=== PATIENT | male | born 1955 | race Caucasian/White ===

== ENCOUNTER 2016-12-13 07:15 | Day surgery (SDC) | payer BC ==
[2016-12-13] MEDS ORDERED: Lactated Ringers 1,000 ML IV ONE (08:19)
[2016-12-13] MEDS ORDERED: Lactated Ringers 1,000 ML IV SCH (08:30)
[2016-12-13 11:46] VITALS: O2SAT 98
[2016-12-13 12:01] VITALS: BP 148/88; PULSE 60
[2016-12-13] MEDS ORDERED: DIPRIVAN 200 MG/20 ML IV ONE (13:30)
[2016-12-13] MEDS ORDERED: Ketamine HCl 50 MG/ML IV ONE (13:30)
--- NOTE | 2016-12-14 08:19 | OP ---
SURGERY DATE: 12/13/16 SURGERY TIME: 904 PREOPERATIVE DIAGNOSIS: 1. THICKENED STOMACH ON CT SCAN. NEEDS FURTHER EVALUATION WITH ENDOSCOPY. POSTOPERATIVE DIAGNOSIS: 1. VERY SMALL HIATAL HERNIA. 2. GASTROESOPHAGEAL REFLUX DISEASE. 3. GASTRITIS. PROCEDURE: 1. EGD with biopsies. SURGEON: Dr. Abril Fuentes. ANESTHESIA: MAC. SPECIMENS: 1. Antral biopsy to rule out Helicobacter pylori. 2. Thick pyloric tissue, rule out malignancy. ESTIMATED BLOOD LOSS: Minimal. COMPLICATIONS: None. HISTORY OF PRESENT ILLNESS: This is a 61 y/o gentleman who presents due to postoperative hernia status post his abdominal aortic aneurysm repair and incidentally on his CT scan to review his hernia, he was noted to have very thickened stomach tissue which needed to be evaluated with endoscopy. All risks, benefits, and alternatives regarding EGD had been discussed with the patient in detail. He understands. He agrees to proceed. He was seen in the preoperative area and remaining questions were answered. PROCEDURE DETAILS: He was then brought into the endoscopy suite. Laid in the left lateral decubitus position. A complete time-out was performed. The scope was inserted into the mouth, oropharynx, down into the esophagus. It was guided carefully into the stomach and then into the duodenum. The duodenum itself looked quite healthy. However, at the level of the pylorus, the tissue here was very thick. He did have a moderate amount of inflammation here and then he also had some inflammation throughout his stomach. We took antral biopsies as well as pyloric biopsies with the cold forceps to rule out any malignancy or issue since he did have this thickening on his CT scan as well. To me, this does not appear to be malignant. This appears to be inflammatory from significant gastritis. All sites were hemostatic after biopsy. These biopsies were sent to pathology. We did do a retroflex view as well. His cardia and upper body of his stomach look okay. There is just a mild amount of gastritis here. The scope was unretroflexed. I did not find any other issues here. He does have a very trace hiatal hernia. This is very minor and as we withdrew the scope, he does have some reflux changes. This is early as well. There is no sign of any gross Kingsley's disease. The scope was completely withdrawn. The patient tolerated the procedure very well. There were no immediate complications. I have started him on proton pump inhibitor therapy and he will follow-up with me in approximately 1-2 weeks to discuss the pathology results. Will plan to relook at this inflamed area in about 3 months' time after he has completed his proton pump inhibitor therapy treatment.
== END 2016-12-13 10:45 | disposition home or self-care (01) ==
LOC: SDC 07:15
PROVIDERS: ATTEND Surgery
PROC: 0DB78ZX Excision of Stomach, Pylorus, Via Natural or Artificial Opening Endoscopic, Diagnostic (ICD-10-PCS; principal; 2016-12-13)
DX: K44.9 Diaphragmatic hernia without obstruction or gangrene (principal); K21.9 Gastro-esophageal reflux disease without esophagitis; K29.70 Gastritis, unspecified, without bleeding
CPT/HCPCS: 00740; 36415; 88305; J2704